=== PATIENT | male | born 1955 | race Hispanic/Latino ===

== ENCOUNTER 2017-05-16 03:39 | Emergency (ER) | payer BC ==
[2017-05-16 03:39] VITALS: BMI 24.4
[2017-05-16] MEDS ORDERED: Iohexol 240 (50 ml) ONE (04:07)
--- NOTE | 2017-05-16 04:19 | ED PDOC ---
Arrival/HPI - General Time Seen by Provider: 05/16/17 03:42 Historian: Patient - History of Present Illness Narrative History of Present Illness (Text): 05/16/17 04:14 62 year old male, with past medical history of renal colic and cholecystectomy, presents to the Emergency department complaining of left lower abdomen discomfort for past two weeks worsening past few hours. Patient recently completed course of antibiotics cipro and flagyl with no improvement to symptoms. Patient informs some diarrhea but denies any vomiting, fever, chills, back pain, appetite changes, urine output changes, chest pain, shortness of breath, or any other complaints. Time/Duration: Prior to Arrival Symptom Course: Worsening Quality: Aching Activities at Onset: Light Context: Work Past Medical History - Provider Review Nursing Documentation Reviewed: Yes - Infectious Disease Hx of Infectious Diseases: None - Cardiac Hx Pacemaker: No - Neurological Hx Paralysis: No - Renal Hx Kidney Stones: Yes (pt passed stone) Other/Comment: renal colic - Hematological/Oncological Hx Blood Transfusions: No Hx Blood Transfusion Reaction: (N/A) - Musculoskeletal/Rheumatological Hx Musculoskeletal Disorders: No - Psychiatric Hx Substance Use: No - Surgical History Other/Comment: colonoscopy done 2 yrs ago colon polyp removed - Anesthesia Hx Anesthesia: Yes Hx Anesthesia Reactions: No Hx Malignant Hyperthermia: No Family/Social History - Physician Review Nursing Documentation Reviewed: Yes Family/Social History: No Known Family HX Smoking Status: Unknown If Ever Smoked Hx Alcohol Use: No Hx Substance Use: No Allergies/Home Meds Allergies/Adverse Reactions: Allergies No Known Allergies Allergy (Verified 08/04/15 22:45) Home Medications: Home Meds Medication Instructions Recorded Confirmed No Known Home Med [No Known Home 01/09/14 05/16/17 Med] Review of Systems - Physician Review All systems were reviewed & negative as marked: Yes - Review of Systems Constitutional: Normal. absent: Fevers Eyes: Normal ENT: Normal Respiratory: Normal. absent: SOB Cardiovascular: Normal. absent: Chest Pain Gastrointestinal: Abdominal Pain, Diarrhea. absent: Nausea, Vomiting, Appetite Changes Genitourinary Male: Normal. absent: Urinary Output Changes Musculoskeletal: Normal. absent: Back Pain Skin: Normal Neurological: Normal Endocrine: Normal Hemo/Lymphatic: Normal Psychiatric: Normal Physical Exam Vital Signs Reviewed: Yes Vital Signs Temp Pulse Resp BP Pulse Ox 05/16/17 04:00 98.2 F 86 18 152/86 H 95 Temperature: Afebrile Blood Pressure: Hypertensive Pulse: Regular Respiratory Rate: Normal Appearance: Positive for: Well-Appearing, Non-Toxic, Comfortable Pain Distress: None Mental Status: Positive for: Alert and Oriented X 3 - Systems Exam Head: Present: Atraumatic, Normocephalic Pupils: Present: PERRL Extroacular Muscles: Present: EOMI Conjunctiva: Present: Normal Mouth: Present: Moist Mucous Membranes Neck: Present: Normal Range of Motion Respiratory/Chest: Present: Clear to Auscultation, Good Air Exchange. No: Respiratory Distress, Accessory Muscle Use Cardiovascular: Present: Regular Rate and Rhythm, Normal S1, S2. No: Murmurs Abdomen: Present: Tenderness (point tenderness in left mid-lower abdomen adjacent to the umbilicus ), Normal Bowel Sounds. No: Distention, Peritoneal Signs, Rebound, Guarding Back: Present: Normal Inspection. No: CVA Tenderness Upper Extremity: Present: Normal Inspection. No: Cyanosis, Edema Lower Extremity: Present: Normal Inspection. No: Edema Neurological: Present: GCS=15, CN II-XII Intact, Speech Normal Skin: Present: Warm, Dry, Normal Color. No: Rashes Psychiatric: Present: Alert, Oriented x 3, Normal Insight, Normal Concentration Medical Decision Making ED Course and Treatment: 05/16/17 04:21 Impression: 62 year old male presents to the Emergency department for abdominal pain. Plan: -- CT of Abd/Pelvis -- Labs -- Reassess and disposition Progress Notes: - Lab Interpretations Lab Results: 05/16/17 04:00 05/16/17 04:00 Lab Results 05/16/17 04:00: WBC 6.3, RBC 5.11, Hgb 17.7, Hct 51.1, MCV 100.0, MCH 34.6, MCHC 34.6, RDW 13.6, Plt Count 181, MPV 10.7 05/16/17 04:00: Sodium 142, Potassium 4.3, Chloride 101, Carbon Dioxide 31, Anion Gap 14, BUN 9, Creatinine 0.7 L, Est GFR ( Amer) > 60, Est GFR (Non -Af Amer) > 60, Random Glucose 101, Calcium 9.9, Total Bilirubin 1.0, AST 50, ALT 63 H, Alkaline Phosphatase 58, Total Protein 8.3, Albumin 4.8, Globulin 3.5 , Albumin/Globulin Ratio 1.4, Triglycerides 75, Cholesterol 166, LDL Cholesterol Direct 82, HDL Cholesterol 54, Lipase 195 - RAD Interpretation Radiology Orders: 05/16/17 03:50 ABD PELVIS PO & IV CONTRAST [CT] Stat - Medication Orders Current Medication Orders: Sodium Chloride (Sodium Chloride 0.9%) 500 mls @ 500 mls/hr IV .Q1H STA Stop: 05/16/17 08:34 Disposition/Present on Arrival - Present on Arrival Any Indicators Present on Arrival: No History of DVT/PE: No History of Uncontrolled Diabetes: No Urinary Catheter: No History Surgical Site Infection Following: None - Disposition Have Diagnosis and Disposition been Completed?: Yes Diagnosis: Abdominal pain Disposition: HOME/ ROUTINE Disposition Time: 08:04 Patient Plan: Discharge Patient Problems: Current Active Problems Problem Status Onset Abdominal pain Acute Condition: STABLE Additional Instructions: To follow up with your youth counselor.
[2017-05-16 04:49] LABS: HEMOGLOBIN 17.7 g/dL (14.0-18.0); MEAN CORPUSCULAR HEMOGLOBIN 34.6 pg (25.0-35.0); MEAN CORPUSCULAR HGB CONC 34.6 g/dl (31.0-37.0); MEAN PLATELET VOLUME 10.7 fl (7.0-11.0); RBC 5.11 10^6/uL (3.5-6.1); RED CELL DISTRIBUTION WIDTH 13.6 % (11.5-14.5); WHITE BLOOD COUNT 6.3 10^3/ul (4.5-11.0)
[2017-05-16 04:55] LABS: ALB/GLOB RATIO 1.4 (1.1-1.8); ALBUMIN 4.8 g/dL (3.0-4.8); ALT/SGPT 63 U/L (7-56); AST/SGOT 50 U/L (17-59); BLOOD UREA NITROGEN 9 mg/dL (7-21); CALCIUM 9.9 mg/dL (8.4-10.5); GFR AFRICAN-AMERICAN > 60; GFR NON-AFRICAN AMERICAN > 60; HDL CHOLESTEROL 54 mg/dL (29-60); LIPASE 195 U/L (23-300)
[2017-05-16 05:06] LABS: LDL CHOLESTEROL 82 mg/dL (0-129)
[2017-05-16 05:37] VITALS: BP 152/86; PULSE 86; RESP 18; TEMP 98.2; O2SAT 95
[2017-05-16] MEDS ORDERED: Sodium Chloride 0.9% 500 ML IV STA (07:35)
--- NOTE | 2017-05-16 08:26 | CT ---
EXAM: CT Abdomen and Pelvis With Intravenous Contrast CLINICAL HISTORY: 62 years old, male; Pain; Abdominal pain; Localized; Lower; Additional info: Left lower abdominal pain TECHNIQUE: Axial computed tomography images of the abdomen and pelvis with intravenous contrast. All CT scans at this facility use one or more dose reduction techniques, viz.: automated exposure control; ma/kV adjustment per patient size (including targeted exams where dose is matched to indication; i.e. head); or iterative reconstruction technique. Coronal and sagittal reformatted images were created and reviewed. CONTRAST: 100 mL of OMNI 350 administered intravenously. COMPARISON: CT - ABD PELVIS IV CONTRAST ONLY 2015-08-04 23:54 FINDINGS: Lower thorax: No infiltrate at the lung bases. Small hiatal hernia. ABDOMEN: Liver: Fatty liver. No hepatic mass. Gallbladder and bile ducts: Cholecystectomy. No ductal dilation. Pancreas: Unremarkable. No mass. No ductal dilation. Spleen: Unremarkable. No splenomegaly. Adrenals: Unremarkable. No mass. Kidneys and ureters: Bilateral renal cortical lobularity. No hydronephrosis. No perinephric fat stranding. Stomach and bowel: Small duodenal diverticulum. No bowel obstruction. No pericolonic inflammatory change. 7 x 7 mm enhancing nodule, lymph node or possibly dense diverticulum along the proximal sigmoid colon, previously measuring 7 x 5 mm. Appendix: No findings to suggest acute appendicitis. PELVIS: Bladder: No asymmetric bladder wall thickening. Reproductive: Slightly heterogeneous prostate gland measures 4.9 cm in diameter, not significantly changed. ABDOMEN and PELVIS: Intraperitoneal space: Unremarkable. No free air. No significant fluid collection. Bones/joints: Degenerative change. Spondylosis deformans. No acute fracture. No dislocation. Stable sclerotic focus in the right inferior pubic ramus. Soft tissues: Unremarkable. Vasculature: There is vascular calcification. No abdominal aortic aneurysm. Lymph nodes: 7 x 7 mm enhancing nodule, lymph node or possibly dense diverticulum along the proximal sigmoid colon, previously measuring 7 x 5 mm. No enlarged lymph nodes. IMPRESSION: No acute findings. 7 x 7 mm homogeneously enhancing nodule, lymph node or possibly dense diverticulum containing minimal old contrast along the proximal sigmoid colon, previously measuring 7 x 5 mm. Colonoscopy may be helpful for further evaluation.
[2017-05-17 22:30] LABS: TOTAL PSA 2.4 ng/mL (< or = 4.0)
== END 2017-05-16 08:08 | disposition home or self-care (01) ==
LOC: ED 03:39
DX: R10.32 Left lower quadrant pain (principal)
CPT/HCPCS: 74177; 80053; 80061; 83690; 84153; 84154; 85027; 96360; 99282; J7040; Q9966

== ENCOUNTER 2017-09-03 07:36 | Day surgery (SDC) | payer OTHER ==
[2017-08-29 10:59] VITALS: BMI 24.1
[2017-09-03 07:55] VITALS: O2SAT 99
[2017-09-03] MEDS ORDERED: Propofol 10 mg/ml Inj (20 ML) ONE ×2 (08:00→09:40)
[2017-09-03] MEDS ORDERED: Lidocaine 2% Inj (20ml) ONE (08:00)
[2017-09-03] MEDS ORDERED: Sodium Chloride 0.9% 1,000 ML IV SCH (09:15)
[2017-09-03] MEDS ORDERED: Etomidate 20 mg/10ml Inj IV ONE ×2 (09:25→09:43)
[2017-09-03 09:46] VITALS: BP 116/85; PULSE 76; RESP 16; TEMP 97.8
== END 2017-09-03 10:25 | disposition home or self-care (01) ==
LOC: ENDO 07:36
PROVIDERS: ATTEND Internal Medicine Gastroenterology
DX: K21.0 Gastro-esophageal reflux disease with esophagitis (principal); K29.50 Unspecified chronic gastritis without bleeding; K44.9 Diaphragmatic hernia without obstruction or gangrene; K22.10 Ulcer of esophagus without bleeding; K57.30 Diverticulosis of large intestine without perforation or abscess without bleeding; K64.8 Other hemorrhoids; K52.9 Noninfective gastroenteritis and colitis, unspecified
CPT/HCPCS: 43239; 45380; 88305; 88342; J2704; J3010; J7040 ×2